=== PATIENT | male | born 1980 | race Caucasian/White ===

== ENCOUNTER 2021-04-13 11:21 | Emergency (ER) | payer MEDICAID ==
[~2021-04-13] VITALS: Ht 177.8 cm; Wt 99.8 kg
--- NOTE | 2021-04-13 11:31 | NUR ---
TO ER BED 4, C/O CHEST PAIN SINCE THIS MORNING, LAST USED HEROIN AND COCAINE A WEEK AGO, MONITOR APPLIED, SALINE LOCK ESTABLISHED, BLOOD DRAWN
[2021-04-13 11:56] LABS: BASOPHILS % (AUTO) 0.3 % (0.0-2.0); EOSINOPHILS % (AUTO) 0.6 % (0.0-6.0); HEMATOCRIT 45 % (39-51); HEMOGLOBIN 15.4 g/dL (13.5-17.5); LYMPHOCYTES # (AUTO) 1.4 K/uL (0.8-4.8); LYMPHOCYTES % (AUTO) 15.5 % (20.0-44.0); MEAN CORPUSCULAR HGB CONC 34 g/dl (31.0-36.0); MEAN CORPUSCULAR VOLUME 86 fL (80-96); MONOCYTES # (AUTO) 0.6 K/uL (0.1-1.30); NEUTROPHILS # (AUTO) 7.1 K/uL (1.8-8.9); NEUTROPHILS % (AUTO) 76.6 % (43.0-81.0); PLATELET COUNT (AUTO) 331 K/uL (150-450); RED BLOOD CELL COUNT(AUTO) 5.29 MIL/uL (4.5-6.0); WHITE BLOOD COUNT (AUTO) 9.2 K/uL (4.3-11.0)
--- NOTE | 2021-04-13 11:58 | NUR ---
URINE COLLECTED AND SENT TO LAB
[2021-04-13 12:03] LABS: CALCIUM, SERUM 8.9 mg/dL (8.5-10.1); CARBON DIOXIDE 25 mmol/L (21-32); CHLORIDE 103 mmol/L (98-107); CREATININE 1.1 mg/dL (0.6-1.3); GLUCOSE 91 mg/dL (74-106); POTASSIUM 3.6 mmol/L (3.5-5.1); SODIUM SERUM 140 mmol/L (136-145); UREA NITROGEN, BLOOD 11 mg/dL (7-18)
[2021-04-13 12:13] LABS: ALCOHOL, BLOOD < 3 mg/dL (0-0)
[2021-04-13] MEDS ORDERED: IV NS 0.9% 1,000 ML IV ONE (15:00)
--- NOTE | 2021-04-13 15:40 | NUR ---
CALLED LAB, SPOKE TO BETTIE FOR REPEAT BLOOD DRAW
[2021-04-13 16:47] VITALS: BP 135/88
== END 2021-04-13 16:47 | disposition home or self-care (01) ==
LOC: ER 11:29
DX: R07.89 Other chest pain (principal); I25.10 Atherosclerotic heart disease of native coronary artery without angina pectoris; F14.10 Cocaine abuse, uncomplicated; F19.10 Other psychoactive substance abuse, uncomplicated; E86.0 Dehydration; R00.2 Palpitations
CPT/HCPCS: 36415; 71045; 80048; 80307; 80320; 84484 ×2; 85025; 93005 ×3; 96360; 99285; J7030; G0480